=== PATIENT | female | born 1940 | race Caucasian/White ===

== ENCOUNTER 2018-04-10 10:53 | Inpatient (IN) ==
[2018-04-10] MEDS ORDERED: PROMETHAZINE 25 MG/1 ML VIAL IM PRN (11:57)
[2018-04-10] MEDS ORDERED: DIAZEPAM 10 MG/2 ML SYRINGE IV PRN (12:44)
[2018-04-10] MEDS: ONDANSETRON 4 MG/2 ML VIAL IV PRN ×2 (13:22→22:34)
[2018-04-10] MEDS: DEXAMETHASONE 4 MG/1 ML VIAL IV SCH ×2 (13:23→20:47)
[2018-04-10] MEDS: ACYCLOVIR INJ 800 MG in SODIUM CHLORIDE 0.9% 250 ML IV SCH ×2 (13:23→20:48)
[2018-04-10] MEDS: SODIUM CHLORIDE 0.9% 1,000 ML IV SCH (13:34)
[2018-04-10 13:46] LABS: Basophils # 0.1 10*3/uL (0.0-0.2); Basophils % 0.5 % (0.0-0.8); Eosinophils % 0.1 % (0.00-10.9); Hemoglobin 11.9 GM/DL (12.0-16.0); Immature Granulocytes % 0.7 %; Immature Granulocytes Absolute 0.07 #; Lymphocytes # 1.9 10*3/uL (1.4-4.0); Mean Corpuscular HGB Conc 32.2 GM/DL (32-36); Mean Corpuscular Hemoglobin 30 PG (27-34); Mean Corpuscular Volume 94.1 FL (87-102); Mean Platelet Volume 10.5 FL (9.6-12.0); Monocytes # 0.6 10*3/uL (0.11-0.8); Monocytes % 5.6 % (1.7-12.7); Neutrophils # 7.8 10*3/uL (1.4-7.4); Neutrophils % 75.1 % (38.7-73.9); Platelet Count 262 T/CUMM (130-400); Red Blood Count 3.93 MC/CUMM (3.8-5.5); Red Cell Distribution Width 12.7 % (9.3-17.3); White Blood Count 10.3 T/CUMM (4-12)
[2018-04-10] MEDS ORDERED: GLUCAGON 1 MG VIAL IM PRN (13:57)
[2018-04-10] MEDS ORDERED: DEXTROSE 50% 25 GM/50 ML VIAL IV PRN (13:57)
[2018-04-10 14:05] LABS: Albumin 3.8 G/DL (3.4-5.0); Calcium 9.1 MG/DL (8.5-10.1); Osmolality,Calculated 272.2 MOS/KG (273-304); Potassium 3.3 MMOL/L (3.5-5.1); Total Protein 7.6 G/DL (6.4-8.3)
[2018-04-10] MEDS: INSULIN REGULAR 100 UNIT/ML SUBCUT SCH ×2 (17:10→20:47)
[2018-04-10] MEDS: IRBESARTAN 150 MG TABLET PO SCH (20:47)
[2018-04-10] MEDS: hydroCHLOROthiazide 25 MG TABLET PO SCH (20:47)
[2018-04-10] MEDS: GABAPENTIN 600 MG TABLET PO SCH (20:47)
[2018-04-10] MEDS ORDERED: [UNRECOGNIZED DRUG - OTHER] PO SCH (21:00)
[2018-04-10] MEDS ORDERED: SITAGLIPTIN PHOS PO SCH (21:00)
[2018-04-10] MEDS ORDERED: METFORMIN HCL PO SCH (21:00)
[2018-04-11] MEDS: DIAZEPAM 5 MG TABLET PO PRN ×2 (00:28→11:35)
[2018-04-11] MEDS: ACYCLOVIR INJ 800 MG in SODIUM CHLORIDE 0.9% 250 ML IV SCH ×2 (04:07→13:06)
[2018-04-11] MEDS: DEXAMETHASONE 4 MG/1 ML VIAL IV SCH ×2 (04:10→11:36)
[2018-04-11] MEDS ORDERED: cloNIDine 0.1 MG TABLET PO SCH (04:30)
[2018-04-11 07:01] LABS: Risk Ratio 3.34; VLDL CHOLESTEROL 21.4 MG/DL
[2018-04-11] MEDS: IRBESARTAN 150 MG TABLET PO SCH (08:22)
[2018-04-11] MEDS: hydroCHLOROthiazide 25 MG TABLET PO SCH (08:22)
[2018-04-11] MEDS: GABAPENTIN 600 MG TABLET PO SCH (08:22)
[2018-04-11] MEDS: INSULIN REGULAR 100 UNIT/ML SUBCUT SCH ×2 (08:23→11:35)
[2018-04-11] MEDS ORDERED: CETIRIZINE 10 MG TABLET PO SCH (09:00)
[2018-04-11] MEDS ORDERED: FLUTICASONE 50 MCG NASAL SPRAY 16 GM BOTTLE BOTH NARES SCH (09:00)
[2018-04-11] MEDS ORDERED: POTASSIUM CHLORIDE 10 MEQ TABLET PO SCH (09:00)
[2018-04-11] MEDS ORDERED: PANTOPRAZOLE 40 MG TABLET PO SCH (09:00)
[2018-04-11 09:08] LABS: Basophils % 0.1 % (0.0-0.8); Hematocrit 32.8 VOL% (35.7-47.0); Hemoglobin 10.7 GM/DL (12.0-16.0); Immature Granulocytes % 0.7 %; Immature Granulocytes Absolute 0.07 #; Lymphocytes # 1.2 10*3/uL (1.4-4.0); Lymphocytes % 12.5 % (21.3-54.2); Mean Corpuscular HGB Conc 32.6 GM/DL (32-36); Mean Corpuscular Hemoglobin 30 PG (27-34); Mean Corpuscular Volume 91.9 FL (87-102); Mean Platelet Volume 11.4 FL (9.6-12.0); Monocytes # 0.4 10*3/uL (0.11-0.8); Monocytes % 3.8 % (1.7-12.7); Neutrophils % 82.9 % (38.7-73.9); Platelet Count 220 T/CUMM (130-400); Red Blood Count 3.57 MC/CUMM (3.8-5.5); Red Cell Distribution Width 12.9 % (9.3-17.3); White Blood Count 9.7 T/CUMM (4-12)
[2018-04-11 09:14] LABS: Calcium 8.9 MG/DL (8.5-10.1); Osmolality,Calculated 280.7 MOS/KG (273-304); Potassium 3.6 MMOL/L (3.5-5.1)
[2018-04-11 11:36] VITALS: BP 143/82
[2018-04-11] MEDS: ONDANSETRON 4 MG/2 ML VIAL IV PRN (11:36)
[2018-04-11] MEDS: SODIUM CHLORIDE 0.9% 1,000 ML IV SCH (14:55)
== END 2018-04-11 14:56 | disposition home health service (06) | DRG 149 ==
LOC: N.3E 11:08
PROVIDERS: ADMIT Otolaryngology; ATTEND Otolaryngology

== ENCOUNTER 2019-05-24 19:30 | Inpatient (IN) ==
[2019-05-24 20:38] LABS: Alanine Aminotransferase 23 U/L (13-56); Albumin 3.4 G/DL (3.4-5.0); Alkaline Phosphatase 81 U/L (45-117); Aspartate Amino Transferase 21 U/L (0-37); Blood Urea Nitrogen 19 MG/DL (7-18); Calcium 8.9 MG/DL (8.5-10.1); Estimated Glom Filtration Rate 49 ML/MIN; Glucose 387 MG/DL (74-106); Osmolality,Calculated 294.5 MOS/KG (273-304); Total Protein 6.6 G/DL (6.4-8.3)
[2019-05-24 20:40] LABS: Basophils # 0.1 10*3/uL (0.0-0.2); Basophils % 0.6 % (0.0-0.8); Eosinophils # 0.2 10*3/uL (0.0-0.87); Eosinophils % 1.1 % (0.00-10.9); Hematocrit 42.3 VOL% (35.7-47.0); Hemoglobin 13.5 GM/DL (12.0-16.0); Immature Granulocytes % 0.4 %; Immature Granulocytes Absolute 0.06 #; Lymphocytes # 1.9 10*3/uL (1.4-4.0); Lymphocytes % 13.1 % (21.3-54.2); Mean Corpuscular HGB Conc 31.9 GM/DL (32-36); Mean Corpuscular Volume 94.2 FL (87-102); Mean Platelet Volume 11.2 FL (9.6-12.0); Monocytes % 5.3 % (1.7-12.7); Neutrophils % 79.5 % (38.7-73.9); Platelet Count 258 T/CUMM (130-400); Red Blood Count 4.49 MC/CUMM (3.8-5.5); Red Cell Distribution Width 12.4 % (9.3-17.3); White Blood Count 14.1 T/CUMM (4-12)
[2019-05-24 20:48] LABS: INR 1.1; PT Patient Result 12.1 SECS (9.6-12.2)
[2019-05-24 21:09] LABS: Apearance,Urine CLEAR (Clear); Bacteria,Urine Occasional /HPF (Few); Bilirubin,Urine Negative (Negative); Blood, Urine Negative (Negative); Glucose,Urine (UA) >=500 mg/dL (Negative); Hyaline Casts,Urine 1 /LPF (0-3); Ketones,Urine 5 mg/dL (Negative); Nitrite,Urine Negative (Negative); Protein,Urine 30 MG/DL; RBC,Urine 2 /HPF (0-4); Urine Color Yellow (Yellow); Urine Specific Gravity 1.033 (1.001-1.035); Urine Urobilinogen < 2.0 EU/DL (0.2-1.0); WBC,Urine <1 /HPF (0-6)
[2019-05-24] MEDS ORDERED: MAGNESIUM SULF RIDER 2 GM in PREMIX 1 EACH IV STA (21:24)
[2019-05-24] MEDS ORDERED: INSULIN REGULAR 100 UNIT/ML SUBCUT STA (21:24)
[2019-05-24 21:32] LABS: Barbiturates Screen,Urine Negative (Negative); Benzodiazepines Screen,Urine Negative (Negative); Cannabinoid Screen,Urine Negative (Negative); Opiate Screen,Urine Positive (Negative); Phencyclidine Screen,Urine Negative (Negative)
[2019-05-24] MEDS ORDERED: NALOXONE 0.4 MG/ML VIAL IV STA (21:49)
[2019-05-24] MEDS ORDERED: NALOXONE 0.4 MG/ML VIAL ONE (21:51)
[2019-05-24 22:54] LABS: ABG Base Excess 0.1 MMOL/L (-2.5-2.5); ABG HCO3 24.5 MMOL/L (20-26); ABG Oxygen Saturation 99.3 % (95-100); ABG PCO2 41.4 MM HG (35-48); ABG PH 7.391 (7.35-7.45); ABG TCO2 21.9 MMOL/L (23-27); Allen Test Positive
[2019-05-24] MEDS ORDERED: DEXTROSE 50% 25 GM/50 ML VIAL IV PRN (22:58)
[2019-05-24] MEDS ORDERED: ALBUTEROL 2.5 MG/3 ML NEB RESP TX PRN (22:58)
[2019-05-24] MEDS ORDERED: ONDANSETRON 4 MG/2 ML VIAL IV PRN (22:58)
[2019-05-24] MEDS ORDERED: GLUCAGON 1 MG VIAL IM PRN (22:58)
[2019-05-24] MEDS ORDERED: PANTOPRAZOLE 40 MG VIAL IV SCH (23:00)
[2019-05-24] MEDS ORDERED: LORazepam 2 MG/1 ML VIAL IV PRN (23:02)
[2019-05-25] MEDS: ENOXAPARIN 40 MG/0.4 ML SYRINGE SUBCUT SCH ×2 (00:40→22:03)
[2019-05-25] MEDS: SODIUM CHLORIDE 0.9% 1,000 ML IV SCH ×3 (00:41→22:03)
[2019-05-25] MEDS: INSULIN REGULAR 100 UNIT/ML SUBCUT SCH ×5 (00:49→22:03)
[2019-05-25] MEDS ORDERED: SODIUM CHLORIDE 0.9% 250 ML IV ONE (05:34)
[2019-05-25 07:10] LABS: Basophils # 0.1 10*3/uL (0.0-0.2); Basophils % 0.5 % (0.0-0.8); Eosinophils # 0.2 10*3/uL (0.0-0.87); Eosinophils % 1.3 % (0.00-10.9); Hematocrit 37.3 VOL% (35.7-47.0); Hemoglobin 11.9 GM/DL (12.0-16.0); Immature Granulocytes % 0.4 %; Immature Granulocytes Absolute 0.05 #; Lymphocytes # 3.2 10*3/uL (1.4-4.0); Lymphocytes % 23.7 % (21.3-54.2); Mean Corpuscular HGB Conc 31.9 GM/DL (32-36); Mean Corpuscular Volume 94.7 FL (87-102); Mean Platelet Volume 10.3 FL (9.6-12.0); Monocytes % 7.3 % (1.7-12.7); Neutrophils % 66.8 % (38.7-73.9); Platelet Count 239 T/CUMM (130-400); Red Blood Count 3.94 MC/CUMM (3.8-5.5); Red Cell Distribution Width 12.4 % (9.3-17.3); White Blood Count 13.4 T/CUMM (4-12)
[2019-05-25 07:30] LABS: Bilirubin,Total 0.9 MG/DL (0.2-1.0); Calcium 9.1 MG/DL (8.5-10.1); Total Protein 6.3 G/DL (6.4-8.3)
[2019-05-25] MEDS ORDERED: DEXTROSE 10% 250 ML BAG IV PRN (07:30)
[2019-05-25] MEDS ORDERED: hydrALAZINE 20 MG/1 ML VIAL IV ONE (08:25)
[2019-05-25] MEDS ORDERED: ONDANSETRON 4 MG TABLET PO SCH (08:30)
[2019-05-25] MEDS ORDERED: [UNRECOGNIZED DRUG - OTHER] PO SCH (09:00)
[2019-05-25] MEDS: CETIRIZINE 10 MG TABLET PO SCH (10:26)
[2019-05-25] MEDS: ACYCLOVIR 200 MG CAPSULE PO SCH ×3 (10:26→21:27)
[2019-05-25] MEDS: metFORMIN 500 MG TABLET PO SCH ×2 (10:26→20:49)
[2019-05-25] MEDS: hydroCHLOROthiazide 25 MG TABLET PO SCH (10:26)
[2019-05-25] MEDS: sitaGLIPtin 25 MG TABLET PO SCH (10:26)
[2019-05-25] MEDS: POTASSIUM CHLORIDE 10 MEQ TABLET PO SCH (10:27)
[2019-05-25] MEDS: PANTOPRAZOLE 40 MG TABLET PO SCH (10:27)
[2019-05-25] MEDS: GABAPENTIN 100 MG CAPSULE PO SCH ×2 (10:27→20:49)
[2019-05-25] MEDS: cloNIDine 0.1 MG TABLET PO SCH ×2 (10:27→20:49)
[2019-05-25] MEDS: ROSUVASTATIN 10 MG TABLET PO SCH (10:27)
[2019-05-25] MEDS: LOSARTAN 50 MG TABLET PO SCH (10:27)
[2019-05-25] MEDS: CITALOPRAM 20 MG TABLET PO SCH (10:28)
[2019-05-25] MEDS ORDERED: LOPERAMIDE 2 MG CAPSULE PO ONE (11:02)
[2019-05-25] MEDS ORDERED: METOPROLOL TARTRATE 5 MG/5 ML VIAL IV SCH (12:00)
[2019-05-25] MEDS ORDERED: ONDANSETRON 4 MG TABLET PO PRN (12:00)
[2019-05-25] MEDS ORDERED: METOPROLOL TARTRATE 5 MG/5 ML VIAL IV PRN (12:07)
[2019-05-25] MEDS ORDERED: ACETAMINOPHEN 325 MG TABLET PO PRN (20:34)
[2019-05-25] MEDS ORDERED: ZIPRASIDONE 20 MG/1 ML VIAL IM ONE (22:52)
[2019-05-26 05:22] LABS: Calcium 8.6 MG/DL (8.5-10.1); Osmolality,Calculated 286.3 MOS/KG (273-304)
[2019-05-26] MEDS ORDERED: POTASSIUM CHLORIDE 20 MEQ TABLET PO ONE (08:58)
[2019-05-26] MEDS: metFORMIN 500 MG TABLET PO SCH ×2 (09:02→20:40)
[2019-05-26] MEDS: cloNIDine 0.1 MG TABLET PO SCH ×2 (09:02→20:40)
[2019-05-26] MEDS: ROSUVASTATIN 10 MG TABLET PO SCH (09:02)
[2019-05-26] MEDS: hydroCHLOROthiazide 25 MG TABLET PO SCH (09:02)
[2019-05-26] MEDS: sitaGLIPtin 25 MG TABLET PO SCH (09:02)
[2019-05-26] MEDS: POTASSIUM CHLORIDE 10 MEQ TABLET PO SCH (09:03)
[2019-05-26] MEDS: LOSARTAN 50 MG TABLET PO SCH (09:03)
[2019-05-26] MEDS: GABAPENTIN 100 MG CAPSULE PO SCH ×2 (09:03→20:40)
[2019-05-26] MEDS: PANTOPRAZOLE 40 MG TABLET PO SCH (09:03)
[2019-05-26] MEDS: INSULIN REGULAR 100 UNIT/ML SUBCUT SCH ×4 (09:03→20:41)
[2019-05-26] MEDS: KETOROLAC 30 MG/1 ML VIAL IV PRN (09:03)
[2019-05-26] MEDS: CETIRIZINE 10 MG TABLET PO SCH (09:10)
[2019-05-26] MEDS: CITALOPRAM 20 MG TABLET PO SCH (09:11)
[2019-05-26] MEDS: ACYCLOVIR 200 MG CAPSULE PO SCH ×3 (10:30→22:24)
[2019-05-26] MEDS ORDERED: MAGNESIUM SULF RIDER 4 GM in PREMIX 1 EACH IV PRN (15:52)
[2019-05-26] MEDS: MAGNESIUM SULF RIDER 2 GM in PREMIX 1 EACH IV PRN (16:31)
[2019-05-26] MEDS: SODIUM CHLORIDE 0.9% 1,000 ML IV SCH (20:40)
[2019-05-26] MEDS: VANCOMYCIN INJ 1,250 MG in SODIUM CHLORIDE 0.9% 250 ML IV SCH (20:41)
[2019-05-26] MEDS: ENOXAPARIN 40 MG/0.4 ML SYRINGE SUBCUT SCH (22:24)
[2019-05-27] MEDS: KETOROLAC 30 MG/1 ML VIAL IV PRN ×2 (05:10→16:24)
[2019-05-27] MEDS ORDERED: hydrALAZINE 20 MG/1 ML VIAL IV PRN (09:21)
[2019-05-27] MEDS: ACYCLOVIR 200 MG CAPSULE PO SCH ×3 (09:25→21:34)
[2019-05-27] MEDS: hydroCHLOROthiazide 25 MG TABLET PO SCH (09:25)
[2019-05-27] MEDS: sitaGLIPtin 25 MG TABLET PO SCH (09:26)
[2019-05-27] MEDS: CETIRIZINE 10 MG TABLET PO SCH (09:26)
[2019-05-27] MEDS: INSULIN REGULAR 100 UNIT/ML SUBCUT SCH ×4 (09:26→21:35)
[2019-05-27] MEDS: PANTOPRAZOLE 40 MG TABLET PO SCH (09:26)
[2019-05-27] MEDS: GABAPENTIN 100 MG CAPSULE PO SCH (09:26)
[2019-05-27] MEDS: metFORMIN 500 MG TABLET PO SCH ×2 (09:26→21:34)
[2019-05-27] MEDS: ROSUVASTATIN 10 MG TABLET PO SCH (09:27)
[2019-05-27] MEDS: POTASSIUM CHLORIDE 10 MEQ TABLET PO SCH (09:27)
[2019-05-27] MEDS: LOSARTAN 50 MG TABLET PO SCH (09:27)
[2019-05-27] MEDS: CITALOPRAM 20 MG TABLET PO SCH (09:27)
[2019-05-27 10:58] LABS: Basophils # 0.1 10*3/uL (0.0-0.2); Basophils % 0.6 % (0.0-0.8); Eosinophils # 0.1 10*3/uL (0.0-0.87); Eosinophils % 1.5 % (0.00-10.9); Hematocrit 35.4 VOL% (35.7-47.0); Hemoglobin 11.5 GM/DL (12.0-16.0); Immature Granulocytes % 0.6 %; Immature Granulocytes Absolute 0.06 #; Lymphocytes # 2.1 10*3/uL (1.4-4.0); Lymphocytes % 22.4 % (21.3-54.2); Mean Corpuscular HGB Conc 32.5 GM/DL (32-36); Mean Corpuscular Volume 93.2 FL (87-102); Monocytes % 4.9 % (1.7-12.7); Platelet Count 201 T/CUMM (130-400); Red Cell Distribution Width 12.4 % (9.3-17.3); White Blood Count 9.6 T/CUMM (4-12)
[2019-05-27] MEDS: cloNIDine 0.1 MG TABLET PO SCH ×3 (11:01→21:34)
[2019-05-27] MEDS: SODIUM CHLORIDE 0.9% 1,000 ML IV SCH (11:01)
[2019-05-27 12:19] LABS: Calcium 8.1 MG/DL (8.5-10.1); Osmolality,Calculated 285.3 MOS/KG (273-304)
[2019-05-27] MEDS ORDERED: POTASSIUM CHLORIDE RIDER 10 MEQ in PREMIX 1 EACH IV PRN (13:18)
[2019-05-27] MEDS ORDERED: POTASSIUM CHLORIDE 20 MEQ/15 ML UDCUP PER TUBE PRN (13:18)
[2019-05-27] MEDS: POTASSIUM CHLORIDE 20 MEQ TABLET PO PRN ×4 (15:13→21:34)
[2019-05-27] MEDS: VANCOMYCIN INJ 1,250 MG in SODIUM CHLORIDE 0.9% 250 ML IV SCH (15:13)
[2019-05-27] MEDS: MAGNESIUM SULF RIDER 2 GM in PREMIX 1 EACH IV PRN (16:26)
[2019-05-27] MEDS: GABAPENTIN 300 MG CAPSULE PO SCH (21:35)
[2019-05-27] MEDS: ENOXAPARIN 40 MG/0.4 ML SYRINGE SUBCUT SCH (23:28)
[2019-05-28 04:52] LABS: Basophils # 0.1 10*3/uL (0.0-0.2); Basophils % 0.6 % (0.0-0.8); Eosinophils # 0.2 10*3/uL (0.0-0.87); Eosinophils % 2.3 % (0.00-10.9); Hematocrit 34.7 VOL% (35.7-47.0); Hemoglobin 11.2 GM/DL (12.0-16.0); Immature Granulocytes % 0.3 %; Immature Granulocytes Absolute 0.03 #; Lymphocytes # 2.2 10*3/uL (1.4-4.0); Lymphocytes % 25.1 % (21.3-54.2); Mean Corpuscular HGB Conc 32.3 GM/DL (32-36); Mean Corpuscular Volume 93.3 FL (87-102); Mean Platelet Volume 11.1 FL (9.6-12.0); Neutrophils % 65.7 % (38.7-73.9); Platelet Count 204 T/CUMM (130-400); Red Blood Count 3.72 MC/CUMM (3.8-5.5); Red Cell Distribution Width 12.3 % (9.3-17.3); White Blood Count 8.8 T/CUMM (4-12)
[2019-05-28 05:15] LABS: Calcium 8.6 MG/DL (8.5-10.1); Osmolality,Calculated 286.1 MOS/KG (273-304)
[2019-05-28] MEDS: INSULIN REGULAR 100 UNIT/ML SUBCUT SCH ×2 (08:51→11:48)
[2019-05-28] MEDS: sitaGLIPtin 25 MG TABLET PO SCH (08:54)
[2019-05-28] MEDS: LOSARTAN 50 MG TABLET PO SCH (08:54)
[2019-05-28] MEDS: PANTOPRAZOLE 40 MG TABLET PO SCH (08:54)
[2019-05-28] MEDS: metFORMIN 500 MG TABLET PO SCH (08:54)
[2019-05-28] MEDS: ACYCLOVIR 200 MG CAPSULE PO SCH (08:54)
[2019-05-28] MEDS: GABAPENTIN 300 MG CAPSULE PO SCH (08:55)
[2019-05-28] MEDS: CETIRIZINE 10 MG TABLET PO SCH (08:55)
[2019-05-28] MEDS: hydroCHLOROthiazide 25 MG TABLET PO SCH (08:55)
[2019-05-28] MEDS: ROSUVASTATIN 10 MG TABLET PO SCH (08:55)
[2019-05-28] MEDS: POTASSIUM CHLORIDE 10 MEQ TABLET PO SCH (08:55)
[2019-05-28] MEDS: CITALOPRAM 20 MG TABLET PO SCH (08:57)
[2019-05-28] MEDS: cloNIDine 0.1 MG TABLET PO SCH ×2 (08:57→14:01)
[2019-05-28] MEDS: hydrALAZINE 25 MG TABLET PO SCH ×2 (08:58→14:01)
[2019-05-28] MEDS: VANCOMYCIN INJ 1,250 MG in SODIUM CHLORIDE 0.9% 250 ML IV SCH (09:01)
[2019-05-28 14:54] VITALS: BP 168/88
== END 2019-05-28 16:19 | disposition home health service (06) | DRG 918 ==
LOC: EDBD → EDUNIT# → N.ED 19:30 → SUATTDRO 22:58 → N.EDINP 22:58 → N.ICU 23:16 → N.2E 05-25 13:47
PROVIDERS: ADMIT Family Medicine; ATTEND Internal Medicine Geriatric Medicine